=== PATIENT | female | born 1985 | race Caucasian/White ===

== ENCOUNTER 2016-04-02 13:11 | Emergency (ER) | payer OTHER ==
[~2016-04-02] VITALS: Ht 162.6 cm; Wt 93.7 kg
[2016-04-02 13:13] VITALS: TEMP 36.9; Ht 162.6 cm; Wt 93.7 kg
[2016-04-02] MEDS ORDERED: FMR25 PO (13:28)
[2016-04-02] MEDS ORDERED: LEVO25TA PO (13:28)
[2016-04-02 14:20] VITALS: O2SAT 98
--- NOTE | 2016-04-02 14:20 | DIAGNOSTIC IMAGING REPORT ---
CHEST ONE VIEW PORTABLE CLINICAL HISTORY: Pleuritic chest pain COMPARISON STUDY: No previous studies for comparison. FINDINGS: The cardiac and mediastinal contours are normal. There is no evidence of focal pulmonary consolidation. There is no evidence of failure. No pleural effusions are visualized.[ No pneumothorax is visualized. IMPRESSION: No active disease in the chest. Electronically signed by: Alexander Trevizo M.D. 04/02/2016 2:18 PM Dictated Date/Time: 04/02/2016 2:18 PM
[2016-04-02 14:37] LABS: BASO % 0.1 %; BASO ABS # 0.01 K/uL (0-0.2); COMPLETE YES; EOS % 0.6 %; HEMATOCRIT 40.9 % (37-47); IG% 0.3 %; LYMPH % 30.5 %; LYMPH ABS # 2.39 K/uL (1.2-3.4); MEAN CELL VOLUME 85.2 fL (80-100); MEAN CORPUSCULAR HEMOGLOBIN 29.8 pg (25-34); MEAN PLATELET VOLUME 10.8 fL (7.4-10.4); MONO % 6.9 %; NEUT % 61.6 %; PLATELET COUNT 289 K/uL (130-400); WHITE BLOOD COUNT 7.83 K/uL (4.8-10.8)
--- NOTE | 2016-04-02 14:51 | DIAGNOSTIC IMAGING REPORT ---
ULTRASOUND LEFT LOWER EXTREMITY VENOUS CLINICAL HISTORY: Left leg pain and swelling. COMPARISON STUDY: No priors. TECHNIQUE: Real-time, grayscale, and color Doppler sonography of the deep veins of the left lower extremity was performed from the inguinal crease to the calf. Compression and augmentation were utilized. FINDINGS: There is no sonographic evidence of deep venous thrombosis identified in the left lower extremity. The common femoral, superficial femoral, and popliteal veins are patent and normally compressible. The greater saphenous vein and the profunda femoris vein at the junction with the common femoral vein are clear. The visualized calf veins are patent. IMPRESSION: There is no sonographic evidence of deep venous thrombosis identified in the left lower extremity. Electronically signed by: Isaias Card M.D. 04/02/2016 2:50 PM Dictated Date/Time: 04/02/2016 2:49 PM
[2016-04-02 14:57] LABS: ALT/SGPT 18 U/L (12-78); AST/SGOT 11 U/L (15-37); BLOOD UREA NITROGEN 7 mg/dl (7-18); BUN/CREATININE RATIO 12.9 (10-20); CALCIUM 9.4 mg/dl (8.5-10.1); CARBON DIOXIDE 25 mmol/L (21-32); CHLORIDE 107 mmol/L (98-107); CREATININE 0.58 mg/dl (0.60-1.20); GLUCOSE 79 mg/dl (70-99); MAGNESIUM 2.1 mg/dl (1.8-2.4); POTASSIUM 3.6 mmol/L (3.5-5.1); SODIUM 141 mmol/L (136-145)
[2016-04-02 15:01] LABS: ALB/GLOB RATIO 1.2 (0.9-2); ALKALINE PHOSPHATASE 76 U/L (45-117)
[2016-04-02 15:31] LABS: INR 0.9 (0.9-1.1); PARTIAL THROMBOPLASTIN RATIO 1.1; PROTHROMBIN TIME (PATIENT) 9.8 SECONDS (9.0-12.0)
--- NOTE | 2016-04-02 15:56 | EMERGENCY ROOM VISIT NOTE ---
History First contact with patient: 13:31 Chief Complaint: LEG PAIN,LEG INJURY Stated Complaint: LEFT LOWER LEG PAIN/SWELLING History of Present Illness The patient is a 30 year old female who presents to the Emergency Department by private vehicle with a friend for evaluation of her LEFT lower extremity pain and cramping. She reports that she has noticed cramping sensation to the LEFT calf over the last 2 days. She reports mild discomfort with ambulation. She denies any numbness or tingling into the distal extremity. She reports no personal history of DVT, however she does report a significant history of factor V Leiden disorder as well as MTHFR. She contacted her primary care provider's office who directed her immediately to the emergency Department for evaluation. The patient reports driving to and from [email or web address] [place] daily for her job. She does not smoke. She does not utilize control. She reports no family history of blood clots or bleeding disorders. She reports some occasional heaviness in her chest. She reports that she is not been overtly short of breath. There is been no hemoptysis. There is been no nausea, vomiting, or abdominal pain. The patient rates her current discomfort as a 6/ 10. She is tried nothing [id number] for her symptoms. Review of Systems A complete 10-point Review of Systems was discussed with the patient, with pertinent positives and negatives listed in the History of Present Illness. All remaining Review of Systems questions can be considered negative unless otherwise specified. Social History Smoking Status: Never Smoker Smokeless Tobacco Use: No Alcohol Use: none Drug Use: none Occupation Status: employed Current/Historical Medications Scheduled Letrozole (Femara), 2.5 MG PO UD Levothyroxine Sodium (Synthroid), 25 MCG PO DAILY Allergies Coded Allergies: Aspirin (Unverified Allergy, Severe, LOSE FEELING, SWELL, 04/02/16) Ibuprofen (Unverified Allergy, Severe, LOSE FEELING, SWELL, 04/02/16) Sulfa Antibiotics (Unverified Allergy, Severe, LOSE FEELING, SWELL, 04/02/16 ) Physical Exam Vital Signs Date Time Temp Pulse Resp B/P Pulse Ox O2 Delivery O2 Flow Rate FiO2 04/02/16 16:10 89 18 130/92 100 04/02/16 16:01 89 18 130/92 100 Room Air 04/02/16 15:20 98 04/02/16 14:20 98 Room Air 04/02/16 14:20 98 18 160/102 98 Room Air 04/02/16 13:13 36.9 94 20 146/87 100 Room Air Pain Rating (0-10): 6 Physical Exam VITAL SIGNS - Vital signs and nursing notes were reviewed. GENERAL - 30-year-old female appearing her stated age who is in no acute distress. Communicates well with provider and answers questions appropriately. LUNGS - Chest wall symmetric without accessory muscle use, intercostals retractions, or central cyanosis. Normal vesicular breath sounds CTA B/L. No wheezes, rales, or rhonchi appreciated. CARDIAC - RRR with S1/S2. No murmur, rubs, or gallops appreciated. No reproducible tenderness to palpation appreciated over the anterior chest wall. ABDOMEN - Abdominal contour obese and without pulsations or visible masses. BS normoactive all four quadrants. No tenderness, palpable masses, hepatosplenomegaly, or ascites noted. EXTREMITIES - No clubbing or peripheral cyanosis. No pretibial edema present. Mild TTP to the LEFT calf. No palpable cords. No erythema or lymphangitic streaking. +3/5 radial and dorsalis pedis pulses palpated throughout. +5/5 strength noted in UE/LE bilaterally. PSYCH - A&Ox3 and cooperates fully with examiner. Pt is very pleasant and interacts well with examiner. Medical Decision & Procedures ER Provider Diagnostic Interpretation: Radiological imaging and reports were reviewed by myself. Radiologist's Interpretation as follows: CHEST ONE VIEW PORTABLE CLINICAL HISTORY: Pleuritic chest pain COMPARISON STUDY: No previous studies for comparison. FINDINGS: The cardiac and mediastinal contours are normal. There is no evidence of focal pulmonary consolidation. There is no evidence of failure. No pleural effusions are visualized.[ No pneumothorax is visualized. IMPRESSION: No active disease in the chest. ULTRASOUND LEFT LOWER EXTREMITY VENOUS CLINICAL HISTORY: Left leg pain and swelling. COMPARISON STUDY: No priors. TECHNIQUE: Real-time, grayscale, and color Doppler sonography of the deep veins of the left lower extremity was performed from the inguinal crease to the calf. Compression and augmentation were utilized. FINDINGS: There is no sonographic evidence of deep venous thrombosis identified in the left lower extremity. The common femoral, superficial femoral, and popliteal veins are patent and normally compressible. The greater saphenous vein and the profunda femoris vein at the junction with the common femoral vein are clear. The visualized calf veins are patent. IMPRESSION: There is no sonographic evidence of deep venous thrombosis identified in the left lower extremity. Laboratory Results 04/02/16 14:07 Red Blood Count 4.80, Mean Corpuscular Volume 85.2, Mean Corpuscular Hemoglobin 29.8, Mean Corpuscular Hemoglobin Concent 35.0, Mean Platelet Volume 10.8, Neutrophils (%) (Auto) 61.6, Lymphocytes (%) (Auto) 30.5, Monocytes (%) (Auto) 6.9, Eosinophils (%) (Auto) 0.6, Basophils (%) (Auto) 0.1, Neutrophils # (Auto) 4.82, Lymphocytes # (Auto) 2.39, Monocytes # (Auto) 0.54, Eosinophils # (Auto) 0.05, Basophils # (Auto) 0.01 04/02/16 14:07 Test 04/02/16 14:07 04/02/16 14:16 04/02/16 14:20 04/02/16 14:56 White Blood Count 7.83 K/uL (4.8-10.8) Red Blood Count 4.80 M/uL (4.2-5.4) Hemoglobin 14.3 g/dL (12.0-16.0) Hematocrit 40.9 % (37-47) Mean Corpuscular Volume 85.2 fL (80-100) Mean Corpuscular Hemoglobin 29.8 pg (25-34) Mean Corpuscular Hemoglobin Concent 35.0 g/dl (32-36) Platelet Count 289 K/uL (130-400) Mean Platelet Volume 10.8 fL (7.4-10.4) Neutrophils (%) (Auto) 61.6 % Lymphocytes (%) (Auto) 30.5 % Monocytes (%) (Auto) 6.9 % Eosinophils (%) (Auto) 0.6 % Basophils (%) (Auto) 0.1 % Neutrophils # (Auto) 4.82 K/uL (1.4-6.5) Lymphocytes # (Auto) 2.39 K/uL (1.2-3.4) Monocytes # (Auto) 0.54 K/uL (0.11-0.59) Eosinophils # (Auto) 0.05 K/uL (0-0.5) Basophils # (Auto) 0.01 K/uL (0-0.2) RDW Standard Deviation 40.0 fL (36.4-46.3) RDW Coefficient of Variation 12.8 % (11.5-14.5) Immature Granulocyte % (Auto) 0.3 % Immature Granulocyte # (Auto) 0.02 K/uL (0.00-0.02) Anion Gap 9.0 mmol/L (3-11) Est Creatinine Clear Calc Drug Dose 157.4 ml/min Estimated GFR () 143.4 Estimated GFR (Non- 123.7 BUN/Creatinine Ratio 12.9 (10-20) Calcium Level 9.4 mg/dl (8.5-10.1) Magnesium Level 2.1 mg/dl (1.8-2.4) Total Bilirubin 0.5 mg/dl (0.2-1) Aspartate Amino Transf (AST/SGOT) 11 U/L (15-37) Alanine Aminotransferase (ALT/SGPT) 18 U/L (12-78) Alkaline Phosphatase 76 U/L (45-117) Total Creatine Kinase 39 U/L (26-192) Creatine Kinase MB < 0.5 ng/ml (0.5-3.6) Creatine Kinase MB Ratio (0-3.0) Total Protein 7.8 gm/dl (6.4-8.2) Albumin 4.3 gm/dl (3.4-5.0) Globulin 3.5 gm/dl (2.5-4.0) Albumin/Globulin Ratio 1.2 (0.9-2) Bedside Troponin I 0.000 ng/ml (0-0.045) Urine Test NEG (NEG) Prothrombin Time 9.8 SECONDS (9.0-12.0) Prothromb Time International Ratio 0.9 (0.9-1.1) Activated Partial Thromboplast Time 27.3 SECONDS (21.0-31.0) Partial Thromboplastin Ratio 1.1 Procedure Patient was placed on the ekg monitor tech and monitored throughout the entire extent of their stay. In addition, the patient's pulse oximetry was monitored throughout the entire stay. Any abnormalities or aberrancies were addressed appropriately. ECG Indication: chest pain Rate (beats per minute): 79 Rhythm: normal sinus Findings: no acute ischemic change, no ectopy Comparison ECG Date: no prior available ED Course Patient was seen and evaluated by myself. Labs were drawn, saline lock in place. EKG and chest x-rays were obtained. Ultrasound of the LEFT lower extremity was obtained. Patient declines anything for pain while in the emergency department. Laboratory results demonstrate no acute leukocytosis, worrisome anemia, or bandemia. The patient has no significant electrolyte abnormalities. Cardiac enzymes were negative. Troponin was neck. Chest x-ray and ultrasound are unremarkable. Laboratory results and imaging studies were reviewed with the patient who acknowledges understanding. The patient was encouraged to follow up with her primary care provider from today's visit. She was educated on worrisome symptoms for return visit to the emergency department. Patient discharged home in good condition. Medical Decision Given the patient's presentation and stated complaints, I did elect to perform the above-mentioned workup. The patient resents today with complaints of cramping and swelling to the LEFT calf. On physical exam, there is no overt swelling appreciated. There is no palpable lymphadenopathy or palpable cords appreciated. She has no erythema to suggest infection. There is no fever leukocytosis. Ultrasound was obtained to rule out DVT. The patient is certainly high risk given her associated factor V and in T8 are. She has no other risk factors, however. She is not tachycardic. She is not hypoxic. She is not tachypneic. Her EKG suggest no strain or other concerns. Despite her occasional episodes of pleuritic pain. She does not have symptoms of this at this time. Her ultrasound is unremarkable. Cardiac enzymes are negative. I do not feel that further imaging studies are necessary at this point. The patient was encouraged to follow-up with her primary care provider from today's visit. She was educated on worrisome symptoms for return visit to the emergency department. Patient discharged home in good condition. In the evaluation and treatment of this patient, the following differential diagnoses were considered: DVT, cellulitis, musculoskeletal strain, CO, ASC, Dysrhythmia, Angina, Mediastinitis, GERD, Esophagitis, PE, Pneumonia, Bronchitis , Costochondritis, Rib Fracture, Zoster. Impression Primary Impression: Leg pain, left Departure Information Dispostion Home / Self-Care Condition GOOD Referrals Alan Torres M.D. (PCP) Patient Instructions My [facility] Additional Instructions You have been treated in the Emergency Department for calf cramps. For pain control, you can use the following [id number] medicines (if >12 yo): - Regular strength (325mg/tab) Tylenol (acetaminophen) 2 tabs every 4-6 hours as needed. Do not exceed 12 tablets in a 24 hour period. Avoid taking more than 4 grams (4000 mg) of Tylenol per day. This includes any other sources of acetaminophen you may take on a regular basis. - Regular strength (200 mg/tab) Advil (ibuprofen) 1-2 tabs every 4-6 hours as needed. Do not exceed a dose of 3200 mg per day. Return to the Emergency Department if your current symptoms worsen despite treatment course outlined above, or if you develop any of the following symptoms : intractable pain despite aforementioned treatment course or new onset of numbness or tingling of the foot.
[2016-04-02 16:10] VITALS: BP 130/92; PULSE 89; O2SAT 100
== END 2016-04-02 16:10 | disposition home or self-care (01) ==
LOC: C.EDB 13:12 → C.EDD 16:10
DX: M79.605 Pain in left leg (principal); Z79.899 Other long term (current) drug therapy; Z88.2 Allergy status to sulfonamides; Z88.6 Allergy status to analgesic agent

== ENCOUNTER → 2016-04-06 | Outpatient (CLI) | payer OTHER ==
[~2016-04-06] MED LIST: FMR25 PO; LEVO25TA PO
== END | disposition home or self-care (01) ==
LOC: C.PAPS 12:40
PROVIDERS: ATTEND Obstetrics & Gynecology
DX: Z00.00 Encounter for general adult medical examination without abnormal findings (principal)

== ENCOUNTER → 2017-01-01 | Day surgery (SDC) | payer OTHER ==
[2016-12-24 14:36] VITALS: BMI 39.0
--- NOTE | 2016-12-24 15:04 | PAT Medication Instructions ---
Service Date Dec 24, 2016. Current Home Medication List Acetaminophen (Tylenol), 1,000 MG PO PRN Levothyroxine Sodium (Synthroid), 25 MCG PO QAM Multivitamin (Multivitamin), 1 TAB PO QAM [Biocleanse], 1 TAB PO QAM Medication Instructions For Your Scheduled Surgery - Hold the following medications the morning of surgery: Multivitamin (Multivitamin), 1 TAB PO QAM [Biocleanse], 1 TAB PO QAM - Take the following medications the morning of surgery with a sip of water: Levothyroxine Sodium (Synthroid), 25 MCG PO QAM Acetaminophen (Tylenol), 1,000 MG PO PRN (okay to take up to 4 hours prior to surgery if needed) - Take the following medications as scheduled the night before surgery: Acetaminophen (Tylenol), 1,000 MG PO PRN (if needed) If you have any questions please call us at [phone] or [phone] or [phone]
[2016-12-24 15:42] LABS: BASO % 0.1 %; BASO ABS # 0.01 K/uL (0-0.2); COMPLETE YES; EOS % 0.9 %; HEMATOCRIT 38.3 % (37-47); IG% 0.3 %; LYMPH % 27.2 %; LYMPH ABS # 2.77 K/uL (1.2-3.4); MEAN CELL VOLUME 86.5 fL (80-100); MEAN CORPUSCULAR HEMOGLOBIN 29.1 pg (25-34); MEAN CORPUSCULAR HGB CONC 33.7 g/dl (32-36); MONO % 5.9 %; NEUT % 65.6 %; PLATELET COUNT 293 K/uL (130-400); RED BLOOD COUNT 4.43 M/uL (4.2-5.4); WHITE BLOOD COUNT 10.19 K/uL (4.8-10.8)
[2016-12-24 16:09] LABS: BUN/CREATININE RATIO 17.2 (10-20); CREATININE 0.54 mg/dl (0.60-1.20); POTASSIUM 3.7 mmol/L (3.5-5.1)
[~2017-01-01] VITALS: Ht 162.6 cm; Wt 103.5 kg
[~2017-01-01] MED LIST changes: +ACET-1256 PO; +ACET-749 PO; +ACETAMINOPHEN 1000 MG/100 ML IV IV ONE; +ATROPINE SULFATE 0.1 MG/ML 5ML SYR IV PRN; +BIOCLEANSE PO; +DEXAMETHASONE SOD INJ 4 MG/ML VIAL ONE; +EpHEDrine SULFATE INJ 50 MG/ML AMP IV PRN; +FENTANYL CITRATE INJ 50 MCG/1 ML 2 ML VIAL IV PRN; +FENTANYL CITRATE INJ 50 MCG/1 ML 2 ML VIAL ONE; -FMR25 PO; +GLYCOPYRROLATE INJ 0.2 MG/ML VIAL ONE; +HYDROmorphone INJ 1 MG/ML SYR IV PRN; +HYDROmorphone INJ 2 MG/ML SYR/VIAL ONE; +LACTATED RINGER'S 1000ML 1,000 ML IV SCH; +LIDOCAINE HCL 2% 2 ML VIAL (20MG/ML) ONE; +MIDAZOLAM HCL 1 MG/ML 2ML VIAL ONE; +MULT-506 PO; +ONDANSETRON INJ 2 MG/ML 2 ML VIAL IV PRN; +ONDANSETRON INJ 2 MG/ML 2 ML VIAL ONE; +OXYCODONE/ACETAMINOPHEN 5-325 TAB PO PRN; +PROMETHAZINE HCL INJ 12.5 MG in SODIUM CHLORIDE 0.9% 50ML 50 ML IV PRN; +PROPOFOL IV EMULSION 10 MG/ML 20 ML VIAL IV ONE; +ROCURONIUM BROMIDE 10 MG/ML 5 ML VIAL IV ONE; +SODIUM CHLORIDE 0.9% 1000ML 1,000 ML IV SCH
[2017-01-01 07:52] VITALS: BP 134/79; PULSE 81; TEMP 36.8; O2SAT 99; Ht 162.6 cm; Wt 103.5 kg
--- NOTE | 2017-01-01 08:13 | History & Physical Bridge Note ---
H&P Re-Evaluation Bridge Note: I have examined the patient, reviewed the History & Physical and in the interval since the performance of the History & Physical I have noted the following changes of clinical significance: No changes noted
--- NOTE | 2017-01-01 08:15 | Discharge Instructions ---
Discharge Instructions Date of Service Jan 01, 2017. Visit Reason for Visit: Female Fertility Problem D/T Endometriosis, Dysmen Discharge Discharge Diagnosis / Problem: Diagnostic laparoscopy Discharge Goals Goal(s): Specific goals Activity Recommendations Activity Limitations: per Instructions/Follow-up section Anesthesia . Post Anesthesia Instructions: If you have had General Anesthesia or IV Sedation: * Do not drive today. * Resume driving when surgeon permits. * Do not make important decisions or sign legal documents today. * Call surgeon for: 1. Temperature elevations greater than 101 degrees F. 2. Uncontrollable pain. 3. Excessive bleeding. 4. Persistent nausea and vomiting. 5. Medication intolerance (nausea, vomiting or rash). * For nausea and vomiting use only clear liquids such as: tea, soda, bouillon until nausea subsides, then gradually increase diet as tolerated. * If you have any concerns or questions, call your surgeon's office. If physician is unavailable and it is an emergency, call 911 or go to the nearest emergency room. . Instructions / Follow-Up Instructions / Follow-Up ACTIVITY RECOMMENDATIONS: * Rest the first 2-3 days. You should be back to your normal activity levels by day 3. * No heavy lifting for 2 weeks. * No intercourse, tampons or douching for 1-2 weeks. * You may shower the next day. * Do not drive anytime that you are taking narcotic pain medicines. RETURN TO SCHOOL/WORK: * May return to school or work after 2-3 days. DIET: Nausea may occur in the immediate post-operative period. If so, take clear liquids such as tea, bouillon, apple juice until all nausea has subsided, then resume usual diet. MEDICATIONS: Resume previous medications unless instructed otherwise by your surgeon. Ibuprofen 200mg 2-3 tablets every 4-6 hours as needed -- OR -- Aleve 2 tablets every 8-12 hours as needed for post-operative discomfort Medications are over the counter. Tylenol may be used if above medications are contraindicated or not preferred. Medication should be taken with food or milk. Do not take on an empty stomach. SPECIAL CARE INSTRUCTIONS: * Check temperature twice daily for one week. report any elevation over 101 degrees. * You may experience some vagina spotting and/or bleeding. This is normal for 1 -2 weeks and should not be heavier than a normal period. If it is unusual in amount, call your physician. * Post-operative discomfort may consist of a sore throat, a "bloated" feeling and pain in the shoulders. these are normal symptoms, which usually only last for 2-3 days. * Remove band-aids tomorrow and shower. There is no need to replace band-aids unless there is drainage or discomfort. FOLLOW UP VISIT: Call your doctor's office for a post-operative 2 week visit if not already scheduled. Diet Recommendations Recommended Home Diet: resume previous diet Pending Studies Studies pending at discharge: no Medical Emergencies . Who to Call and When: Medical Emergencies: If at any time you feel your situation is an emergency, please call 911 immediately. . Non-Emergent Contact Non-Emergency issues call your: Primary Care Provider . . "Provider Documentation" section prepared by Lucy Fernandez. . [place] Drug Monitoring Program Search Results: no issues identified
[2017-01-01 08:56] LABS: PREG INTERNAL NEGATIVE QC NEG CLEAR BACKGROUND; PREG INTERNAL POSITIVE QC POS CONTROL LINE
--- NOTE | 2017-01-01 11:13 | [facility] Post Operative Brief Note ---
Immediate Operative Summary Operative Date Jan 01, 2017. Pre-Operative Diagnosis Dysmenorrhea, infertility, suspected endometriosis Post-Operative Diagnosis Dysmenorrhea, infertility, endometriosis Procedure(s) Performed Diagnostic Laparoscopy, fulgeration of endometriosis with Davinci robot assist Surgeon Dr. Fernandez Sales Representative Graphic Art Surgeon(s) javad Estimated Blood Loss 5 ml Findings severe endometriosis Specimens A:Left adenexal adhesion B: Left paratubal cyst C: Left anterior culda sac D: Midline anterior Culda Sac E: Pelvic Adhesions F: Right adenexal adhesion
--- NOTE | 2017-01-01 11:13 | Anesthesiology Progress Note ---
Anesthesia Post Op Note Date & Time Jan 01, 2017 at 11:13 Vital Signs Pain Intensity: 0 Vital Signs Past 12 Hours Date Time Temp Pulse Resp B/P (MAP) Pulse Ox O2 Delivery O2 Flow Rate FiO2 01/01/17 11:05 86 15 143/93 100 Oxymask 10 01/01/17 10:56 36.8 77 14 142/71 100 Oxymask 10 01/01/17 07:52 36.8 81 14 134/79 (97) 99 Room Air Notes Mental Status: alert / awake / arousable, participated in evaluation Pt Amnestic to Procedure: Yes Nausea / Vomiting: adequately controlled Pain: adequately controlled Airway Patency, RR, SpO2: stable & adequate BP & HR: stable & adequate Hydration State: stable & adequate Anesthetic Complications: no major complications apparent
[2017-01-01 11:54] VITALS: BP 129/68; PULSE 85; TEMP 36.6; O2SAT 96
--- NOTE | 2017-01-01 12:05 | OPERATIVE REPORT ---
DATE OF OPERATION: 01/01/2017 PREOPERATIVE DIAGNOSES: Dysmenorrhea, infertility and suspected endometriosis. POSTOPERATIVE DIAGNOSES: Dysmenorrhea, infertility and confirmed endometriosis. PROCEDURE: Diagnostic laparoscopy with fulguration of endometriosis and excision of adhesions using da Karen robot. SURGEON: Dr. Fernandez. OCEAN EXPORT COORDINATOR: None. ESTIMATED BLOOD LOSS: 5 mL. FINDINGS: Severe endometriosis involving bilateral adnexal structures, anterior and posterior uterine surfaces, scarring in the anterior and posterior cul-de-sacs, and large bands of adhesion tissue from the bowel to the pelvic organs. SPECIMENS: Include left and right adnexal adhesions, left paratubal cyst, left and midline anterior cul-de-sac, peritoneum. COMPLICATIONS: None. DISPOSITION: Stable to the recovery room. DESCRIPTION: Rylie Burdick is a 31-year-old G0 who presented to my care for difficulty conceiving and painful menstrual cycles. She had a clinical history consistent with endometriosis and her prior exam done by Dr. Hawley had also been suspicious for endometriosis, specifically of the uterosacral ligaments. Treatment options were discussed but as the patient is trying to conceive, she wished to avoid hormonal treatments; therefore, she elected for diagnostic laparoscopy with possible fulguration. She was brought to the operating room, placed on the table in the dorsal lithotomy position with Yellofin stirrups, prepped and draped in standard sterile fashion and a hard time-out was taken prior to proceeding. England and acorn uterine manipulator were both placed. Attention was then turned to the abdomen where umbilical entry was made in an optical manner. The patient was then insufflated and then placed in steep Trendelenburg. Pelvic organs were examined briefly and did reveal evidence of endometriosis. Under direct visualization, right and left lower quadrant ports were then placed. The robot was docked. Instruments were inserted and surgery then began in earnest. A systematic approach was taken, sweeping from the left pelvic sidewall across the pelvic organs to the right pelvic sidewall, as we went peeling down adhesion tissue, stripping peritoneum where that was safe to do in order to remove endometriotic implants and lysing adhesions without removal where that was deemed most appropriate. Significant adhesions were specifically taken down between the sigmoid colon and the pelvic sidewall. Adhesive disease was seen around the left fallopian tube which is questionably mildly hydrosalpinx. Paratubal cysts were removed from the left adnexa. Significant adhesions forming a web between and around the ovary and the pelvic sidewall were excised and fulguration was used to treat endometriotic implants, coating the posterior wall of the uterine body. Lysis of adhesions was performed throughout the cul-de-sac, restoring normal anatomy and organ mobility. Lysis of adhesions was also performed on the anterior surface of the uterus where the appearance of the vesicouterine fold was actually more consistent with someone who has had multiple cesareans than someone who is nulligravid and this was due to pockets of endometriosis which were serially encountered as these adhesions were peeled down to restore normal anatomy. Moving across adhesive disease in the left, adnexal area was also encountered and excised or lysed where most appropriate, restoring normal anatomy and finally a large web of adhesions coating the bowel in the pelvic area were elevated and under direct visualization, these were very carefully sharply dissected without electrocautery to remove the web and allow normal mobilization of bowel and pelvic organs. Photographs were again taken once normal anatomy had been restored to the best of my ability. Of note, both fallopian tubes appear very mildly dilated and although I do not think either of them is an obvious hydrosalpinx, I would not be surprised to find, if we had the opportunity to examine them under the microscope, we would find some tubal disease. At this time, the patient is hoping for fertility and so the decision was made to leave these in place without any direct treatment that might compromise their function and handling of the fallopian tubes was kept to a bare minimum. Once the surgery was completed, all instruments were withdrawn after the abdomen was allowed to desufflate. The port sites were closed using UR-6 Vicryl at the fascial layer of the umbilicus, 4-0 Monocryl and Dermabond at all sites and the England and manipulator were removed as well. The patient was then transferred in stable condition to the recovery room and is anticipating to be discharged home today. I attest to the content of the Intraoperative Record and any orders documented therein. Any exception s are noted below.
[2017-01-01 12:25] VITALS: BP 135/77; PULSE 89; O2SAT 100
[2017-01-01 12:55] VITALS: BP 138/61; PULSE 91; O2SAT 16
[2017-01-01 13:30] VITALS: BP 132/71; PULSE 89; O2SAT 99
[2017-01-01] MEDS: PROMETHAZINE HCL INJ 25 MG in SODIUM CHLORIDE 0.9% 50ML 50 ML IV PRN ×2 (13:50→13:52)
[2017-01-01 14:30] VITALS: BP 135/69; PULSE 92; O2SAT 100
== END | disposition home or self-care (01) ==
LOC: C.ACU 07:09
PROVIDERS: ATTEND Obstetrics & Gynecology
DX: N97.9 Female infertility, unspecified (principal); N94.6 Dysmenorrhea, unspecified; N80.9 Endometriosis, unspecified; D68.51 Activated protein C resistance; E03.9 Hypothyroidism, unspecified; E72.12 Methylenetetrahydrofolate reductase deficiency; Z88.2 Allergy status to sulfonamides; J45.909 Unspecified asthma, uncomplicated; E66.9 Obesity, unspecified; Z90.89 Acquired absence of other organs
CPT/HCPCS: 58662; S2900